=== PATIENT | female | born 1965 | race Caucasian/White ===

== ENCOUNTER 2019-04-10 07:34 | Inpatient (IN) | payer OTHER ==
[2019-04-10] VITALS (10 sets, daily range): BP systolic 104–131; BP diastolic 41–72
[~2019-04-10] VITALS: Ht 175.3 cm; Wt 103.1 kg
[~2019-04-10 07:34] MED LIST: BUPR150T73 PO; HYDR1TAB15 PO; OXYC5TAB3 PO; SULF-169 PO; ZOLP-413 PO
--- NOTE | 2019-04-10 07:50 | NUR ---
gustavo. report received from [facility]. pt c./o abd pain with n/v/d x 10 days. pt states "dark emesis and black stool" pt denies any pmh. no meds at home. pt's aox4. resps even and unlabored. bp/spo2 monitors in place. call light within reach. pa at bedside to evaluate at this time.
--- NOTE | 2019-04-10 08:02 | NUR ---
TASK RN: URINE COLLECTED AND SENT TO LAB
[2019-04-10 08:17] LABS: MEAN CORPUSCULAR HGB CONC 31.4 g/dL (32.4-35.8); MEAN CORPUSCULAR VOLUME 76.5 fL (80-100); MEAN PLATELET VOLUME 9.3 fL (7.4-10.4); PLATELET COUNT 456 x10^3/uL (130-400); RED BLOOD COUNT 2.69 x10^6/uL (3.82-5.3); RED CELL DISTRIBUTION WIDTH 16.7 % (9.6-15.2)
[2019-04-10 08:18] LABS: MICROSCOPIC NOT IND
[2019-04-10 08:22] LABS: CULTURE INDICATED? NO
[2019-04-10 08:23] LABS: ALBUMIN 2.5 g/dL (3.4-5.0); ANION GAP 7 mmol/L (5-15); CALCIUM 8.3 mg/dL (8.5-10.1); CHLORIDE 114 mmol/L (98-107)
[2019-04-10 08:27] LABS: ALANINE AMINOTRANSFERASE 38 U/L (12-78); ALKALINE PHOSPHATASE 80 U/L (45-117); BILIRUBIN,TOTAL 0.3 mg/dL (0.2-1.0); CREATININE 0.82 mg/dL (0.55-1.02); TOTAL PROTEIN 5.6 g/dL (6.4-8.2)
[2019-04-10] MEDS ORDERED: PANTOPRAZOLE 80 MG in SODIUM CHLORIDE 0.9% 100 ML IV SCH (08:27)
[2019-04-10] MEDS ORDERED: PANTOPRAZOLE 80 MG in SODIUM CHLORIDE 0.9% 50 ML IVPB ONE (08:27)
[2019-04-10] MEDS ORDERED: SODIUM CHLORIDE FLUSH 10ML SYR IVF ONE (08:30)
[2019-04-10 08:40] LABS: BASOPHILS # (AUTO) 0.02 x10^3/uL (0-0.1); BASOPHILS % (AUTO) 0 % (0-1); EOSINOPHILS % (AUTO) 0 % (1-7); LYMPHOCYTES # (AUTO) 0.82 x10^3/uL (1-3.4); LYMPHOCYTES % (AUTO) 13 % (22-44); MD MORPH REVIEW ONLY; MONOCYTES # (AUTO) 0.64 x10^3/uL (0.2-0.8); MONOCYTES % (AUTO) 10 % (2-9); NEUTROPHILS # (AUTO) 4.75 x10^3/uL (1.8-6.8); NEUTROPHILS % (AUTO) 76 % (42-75)
[2019-04-10 08:41] LABS: <PLATELET ESTIMATE> INCREASED; <PLT MORPHOLOGY> NORMAL PLT MORPH; ANISOCYTOSIS 1+; HYPOCHROMIA 1+; MICROCYTOSIS 1+; POLYCHROMASIA 1+
--- NOTE | 2019-04-10 08:55 | NUR ---
medication ordered from pharmacy at this time.
--- NOTE | 2019-04-10 09:06 | NUR ---
pt signed blood transfusion consent form at this time. edmd signed consent form as well.
--- NOTE | 2019-04-10 09:12 | NUR ---
protonix infusing at this time. pt tolerated well.
[2019-04-10 09:24] LABS: PROTHROMBIN TIME 10.6 Seconds (9.6-11.5)
[2019-04-10] MEDS ORDERED: hydrALAzine 20 MG/ML, 1ML IVPush PRN (09:30)
[2019-04-10] MEDS ORDERED: ONDANSETRON ODT 4 MG PO PRN (09:30)
[2019-04-10] MEDS ORDERED: HYDROcodone/APAP 5/325 TABLET PO PRN (09:30)
[2019-04-10] MEDS ORDERED: morphine SULFATE 10 MG/ML, 1ML IVPush PRN (09:30)
[2019-04-10] MEDS ORDERED: ONDANSETRON 2MG/ML, 2ML IVPush PRN (09:30)
[2019-04-10] MEDS ORDERED: ACETAMINOPHEN 325 MG TABLET PO PRN (09:30)
[2019-04-10] MEDS ORDERED: BACLOFEN 10 MG TABLET PO PRN (09:30)
--- NOTE | 2019-04-10 09:35 | NUR ---
blood obtained from lab by this rn.
--- NOTE | 2019-04-10 09:40 | NUR ---
blood transfusion started with duarte cota.
--- NOTE | 2019-04-10 09:49 | NUR ---
2nd protonix infusing at this time. pt tolerated well.
--- NOTE | 2019-04-10 10:04 | NUR ---
PT'S AOX4. RESPS EVEN AND UNLABORED. PT DENIES PAIN, SOB, ANY OTHER SX. PIV SITE CDI WITH NO REDNESS/EDEMA.
--- NOTE | 2019-04-10 11:21 | NUR ---
PT STILL TRANSFUSING. PT'S AOX4. RESPS EVEN AND UNLABORED. PT DENIES PAIN, SOB, CP, BACK PAIN, ITCHINESS. PIV SITE CDI WITH NO REDNESS/EDEMA.
--- NOTE | 2019-04-10 11:39 | NUR ---
MEDICATIONS ORDERED FROM PHARMACY AT THIS TIME.
[2019-04-10] MEDS: D5%-0.45NACL+KCL 20MEQ 1,000 ML IV SCH (12:20)
--- NOTE | 2019-04-10 12:20 | NUR ---
BREAK RN: PT MOVED ONTO HOSPITAL BED. AMB TO BATHROOM WITH STEADY GAIT. ADL COMPLETED BY PT. VSS. CALL LIGHT WITHIN REACH
--- NOTE | 2019-04-10 12:50 | NUR ---
PT RESTING IN [facility]. PT'S AOX4. RESPS EVEN AND UNLABORED. ALL MONITORS IN PLACE. CALL LIGHT WITHIN REACH.
--- NOTE | 2019-04-10 13:41 | NUR ---
PT RESTING IN [facility]. PT'S AOX4. RESPS EVEN AND UNLABORED. ALL MONITORS IN PLACE. CALL LIGHT WITHIN REACH.
--- NOTE | 2019-04-10 14:10 | NUR ---
report given to jose francisco cota. all questions answered.
--- NOTE | 2019-04-10 14:37 | NUR ---
pillow/apple juice provided at this time.
--- NOTE | 2019-04-10 15:12 | NUR ---
GI procedure already scheduled 13:[address] Samuels
[2019-04-10] MEDS: PANTOPRAZOLE 80 MG in SODIUM CHLORIDE 0.9% 100 ML IV SCH (20:01)
[2019-04-11] VITALS (9 sets, daily range): BP systolic 110–126; BP diastolic 61–75
[2019-04-11] MEDS: D5%-0.45NACL+KCL 20MEQ 1,000 ML IV SCH (01:32)
[2019-04-11 03:30] LABS: BASOPHILS # (AUTO) 0.02 x10^3/uL (0-0.1); BASOPHILS % (AUTO) 1 % (0-1); EOSINOPHILS # (AUTO) 0.19 x10^3/uL (0-0.4); EOSINOPHILS % (AUTO) 4 % (1-7); LYMPHOCYTES # (AUTO) 1.34 x10^3/uL (1-3.4); LYMPHOCYTES % (AUTO) 28 % (22-44); MD NO; MEAN CORPUSCULAR HEMOGLOBIN 26.2 pg (27.0-34.8); MEAN CORPUSCULAR HGB CONC 32.8 g/dL (32.4-35.8); MEAN CORPUSCULAR VOLUME 79.8 fL (80-100); MEAN PLATELET VOLUME 9.4 fL (7.4-10.4); MONOCYTES # (AUTO) 0.59 x10^3/uL (0.2-0.8); MONOCYTES % (AUTO) 13 % (2-9); NEUTROPHILS # (AUTO) 2.56 x10^3/uL (1.8-6.8); NEUTROPHILS % (AUTO) 55 % (42-75); PLATELET COUNT 322 x10^3/uL (130-400); RED BLOOD COUNT 3.24 x10^6/uL (3.82-5.3); RED CELL DISTRIBUTION WIDTH 17.2 % (9.6-15.2)
[2019-04-11 03:38] LABS: ANION GAP 6 mmol/L (5-15); CALCIUM 8.3 mg/dL (8.5-10.1); CHLORIDE 116 mmol/L (98-107); CREATININE 0.68 mg/dL (0.55-1.02)
[2019-04-11] MEDS: PANTOPRAZOLE 80 MG in SODIUM CHLORIDE 0.9% 100 ML IV SCH (04:21)
[2019-04-11] MEDS ORDERED: ACETAMINOPHEN 325 MG TABLET PO PRN (13:30)
[2019-04-11] MEDS ORDERED: KETOROLAC 30 MG/1 ML IV PRN (13:30)
[2019-04-11] MEDS ORDERED: hydrALAzine 20 MG/ML, 1ML IV PRN (13:30)
[2019-04-11] MEDS ORDERED: OXYcodone 5 MG/5 ML ORAL.SOL UDC PO PRN (13:30)
[2019-04-11] MEDS ORDERED: MEPERIDINE/PF 25MG/0.5ML IVPush PRN (13:30)
[2019-04-11] MEDS ORDERED: HYDROmorphone 2 MG/ML, 1ML IVPush PRN (13:30)
[2019-04-11] MEDS ORDERED: DIAZEPAM 5 MG/ML, 2ML IVPush PRN (13:30)
[2019-04-11] MEDS ORDERED: LABETALOL 5MG/ML, 20ML IV PRN (13:30)
[2019-04-11] MEDS ORDERED: PROMETHAZINE 25 MG/ML, 1ML IV PRN (13:30)
[2019-04-11] MEDS ORDERED: ALBUTEROL SULFATE 2.5 MG/3 ML NPPB PRN (13:30)
[2019-04-11] MEDS ORDERED: FENTANYL PF 100 MCG/2ML IV PRN (13:30)
[2019-04-11] MEDS ORDERED: ALBUTEROL SULFATE 2.5 MG/3 ML ONE (13:40)
[2019-04-11] MEDS: OMEPRAZOLE 20 MG CAPSULE.DR PO SCH (16:17)
[2019-04-11] MEDS: SUCRALFATE 1 GM TABLET PO SCH ×2 (16:18→19:28)
[2019-04-12 03:59] VITALS: BP 118/59
[2019-04-12 05:01] LABS: BASOPHILS # (AUTO) 0.01 x10^3/uL (0-0.1); BASOPHILS % (AUTO) 0 % (0-1); EOSINOPHILS # (AUTO) 0.18 x10^3/uL (0-0.4); EOSINOPHILS % (AUTO) 3 % (1-7); LYMPHOCYTES # (AUTO) 1.35 x10^3/uL (1-3.4); LYMPHOCYTES % (AUTO) 26 % (22-44); MD NO; MEAN CORPUSCULAR HGB CONC 32.2 g/dL (32.4-35.8); MEAN CORPUSCULAR VOLUME 80.9 fL (80-100); MEAN PLATELET VOLUME 9.6 fL (7.4-10.4); MONOCYTES # (AUTO) 0.63 x10^3/uL (0.2-0.8); MONOCYTES % (AUTO) 12 % (2-9); NEUTROPHILS # (AUTO) 3.07 x10^3/uL (1.8-6.8); NEUTROPHILS % (AUTO) 59 % (42-75); PLATELET COUNT 353 x10^3/uL (130-400); RED BLOOD COUNT 3.39 x10^6/uL (3.82-5.3); RED CELL DISTRIBUTION WIDTH 17.8 % (9.6-15.2)
[2019-04-12 05:11] LABS: ANION GAP 5 mmol/L (5-15); CALCIUM 8.8 mg/dL (8.5-10.1); CHLORIDE 115 mmol/L (98-107)
[2019-04-12 05:13] LABS: CREATININE 0.84 mg/dL (0.55-1.02)
[2019-04-12] MEDS: OMEPRAZOLE 20 MG CAPSULE.DR PO SCH (05:41)
[2019-04-12] MEDS: SUCRALFATE 1 GM TABLET PO SCH (05:41)
[2019-04-12 08:48] VITALS: BP 115/62
[2019-04-12] MEDS ORDERED: SUCR1TAB33 PO (09:14)
[2019-04-12] MEDS ORDERED: OMEP-110 PO (09:14)
== END 2019-04-12 10:45 | disposition home or self-care (01) | DRG 378 ==
LOC: SUATTDRO 08:50 → OR 09:17 → EDIP 09:25 → 4WST 15:13
PROVIDERS: ADMIT Hospitalist; ATTEND Family Medicine
PROC: 30233N1 Transfusion of Nonautologous Red Blood Cells into Peripheral Vein, Percutaneous Approach (ICD-10-PCS; principal; 2019-04-10)
PROC: 0DB68ZX Excision of Stomach, Via Natural or Artificial Opening Endoscopic, Diagnostic (ICD-10-PCS; 2019-04-11)
DX: K25.4 Chronic or unspecified gastric ulcer with hemorrhage (principal); D62 Acute posthemorrhagic anemia; E88.09 Other disorders of plasma-protein metabolism, not elsewhere classified; Z82.5 Family history of asthma and other chronic lower respiratory diseases; M17.12 Unilateral primary osteoarthritis, left knee; Z86.14 Personal history of Methicillin resistant Staphylococcus aureus infection; Z87.11 Personal history of peptic ulcer disease; K44.9 Diaphragmatic hernia without obstruction or gangrene
CPT/HCPCS: 36415; 74021; 96365; 96375; 96376; 99291; J7613; 71046; 80048; 80053; 81003; 82728; 83540; 83550; 83605; 83690; 84466; 85014; 85018; 85025; 85610; 85730; 86850; 86900; 86923; 88305; 88342; 93005; G0378; C9113; J3480; P9016